=== PATIENT | male | born 1955 | race Asian ===

== ENCOUNTER 2016-06-07 13:00 | Outpatient (RCR) | payer MEDICAID ==
[2016-06-06 15:17] LABS: HEMATOCRIT 20.6 % (42.0-52.0); HEMOGLOBIN 6.5 g/dl (13.5-18.0)
[~2016-06-07] VITALS: Ht 172.7 cm; Wt 65.9 kg
[2016-06-07] VITALS (9 sets, daily range): BP systolic 91–110; BP diastolic 36–64; PULSE 68–73; TEMP 97.6–98.7
[~2016-06-07 13:00] MED LIST: DILAUDID 4MG TAB4 MG PO; HYDROXYURE500 MG/CAP PO; OXY IR5 MG PO; OXYCONTIN 10MG10 MG PO; OXYCONTIN15 MG PO; PHENERGAN1.25 MG/ML PO; ZYLOPRIM 300MG300 MG PO
== END 2016-09-04 | disposition still patient (30) ==
LOC: EUO
PROVIDERS: Internal Medicine Medical Oncology
DX: D46.A Refractory cytopenia with multilineage dysplasia (principal)
CPT/HCPCS: J7050; P9040

== ENCOUNTER 2016-10-29 12:24 | Emergency (ER) | payer MEDICAID ==
[~2016-10-29] VITALS: Ht 172.7 cm; Wt 54.5 kg
[2016-10-29 12:30] VITALS: TEMP 98
[2016-10-29 13:50] LABS: BASO % 0.2 % (0.0-2.0); EOS % 0.2 % (0-4.0); GRAN # 2.1 (1.4-6.5); GRAN % 48.3 % (42.2-75.2); LYMPH # 1.1 (1.2-3.4); LYMPH % 25.8 % (20.0-51.0); MEAN CELL VOLUME 94 fl (80.0-100.0); MEAN CORPUSCULAR HGB CONC 33 g/dl (33.0-37.0); MONO # 0.6 (0.1-0.6); MONO % 13.2 % (1.7-9.3); RED BLOOD COUNT 2.59 M/mm3 (4.20-5.60); REDCELL DISTRIBUTION WIDTH-CV 20.5 % (11.5-14.5); WHITE BLOOD COUNT 4.3 K/mm3 (4.8-10.8)
[2016-10-29 13:52] LABS: HEMATOCRIT 24.3 % (42.0-52.0); MEAN CORPUSCULAR HEMOGLOBIN 31 pg (27.0-31.0)
[2016-10-29 13:53] LABS: INR 1.1 (0.8-3.0); PLATELET COUNT 16 K/mm3 (130-400); PROTHROMBIN TIME 12.7 SECONDS (9.7-12.8)
[2016-10-29 13:58] LABS: ADJUSTED CALCIUM 9.3 mg/dL (8.4-10.2); BILIRUBIN,TOTAL 1.6 mg/dL (0.0-1.0); CALCIUM 8.5 mg/dL (8.4-10.2); CREATININE, serum 1.07 mg/dL (0.66-1.25); POTASSIUM 3.7 mmol/L (3.4-5.0); TOTAL PROTEIN 5.4 gm/dL (6.4-8.2)
[2016-10-29 14:09] LABS: ADD PATHOLOGY DIFF REVIEW NO
[2016-10-29 14:10] LABS: BAND 4 % (0-10); BASOPHIL 0 % (0-2); EOSINOPHIL 2 % (0-4); NEUTROPHILS 52 % (42.0-75.2); POIKILOCYTOSIS 1+; POLYCHROMASIA 1+; TOTAL CELLS COUNTED 100
[2016-10-29] MEDS ORDERED: DILAUDID 2MG TAB2 MG PO (16:19)
[2016-10-29 16:38] VITALS: BP 155/99; PULSE 72
== END 2016-10-29 16:51 | disposition home or self-care (01) ==
LOC: COL.ER 12:24
PROVIDERS: Emergency Medicine
DX: R18.8 Other ascites (principal); K72.90 Hepatic failure, unspecified without coma; B19.20 Unspecified viral hepatitis C without hepatic coma; Z85.6 Personal history of leukemia; Z94.81 Bone marrow transplant status
CPT/HCPCS: J1170

== ENCOUNTER → 2016-10-31 | Outpatient (CLI) | payer MEDICAID ==
[~2016-10-31] MED LIST changes: +ALDACTONE50 MG PO; +BARACLUDE0.5 MG PO; +CIPRO 250MG TA250 MG PO; +DAPSONE 100MG100 MG PO; +DILAUDID 2MG TAB2 MG PO; +K-DUR20 MEQ PO; +LASIX 40MG TABL40 MG PO; +PREDNISONE 5MG5 MG PO; +PROAMATINE 5MG T5 MG PO; +PROTONIX 40MG T40 MG PO; +VALTREX1 GM PO; +ZEBETA 5MG5 MG PO
[2016-10-31 15:33] VITALS: BP 167/104; PULSE 63
== END ==
LOC: COL.RAD 10:00
DX: Z01.89 Encounter for other specified special examinations (principal)

== ENCOUNTER 2016-11-06 13:00 | Outpatient (RCR) | payer MEDICAID ==
[2016-10-23 12:47] LABS: ADD PATHOLOGY DIFF REVIEW NO
[2016-10-23 13:00] LABS: ADJUSTED CALCIUM 9.1 mg/dL (8.4-10.2); ALANINE AMINOTRANSFERASE 31 U/L (21-72); ALBUMIN 3.3 gm/dL (3.5-5.0); ALKALINE PHOSPHATASE 124 U/L (50-136); ANION GAP 11 mmol/L (7-16); BILIRUBIN,TOTAL 1.4 mg/dL (0.0-1.0); BLOOD UREA NITROGEN 31 mg/dL (9-20); CALCIUM 8.5 mg/dL (8.4-10.2); CARBON DIOXIDE 20 mmol/L (22-30); CHLORIDE 97 mmol/L (98-107); CREATININE, serum 1.59 mg/dL (0.66-1.25); GLUCOSE 111 mg/dL (74-106); POTASSIUM 3.9 mmol/L (3.4-5.0); SODIUM 128 mmol/L (137-145); TOTAL PROTEIN 5.6 gm/dL (6.4-8.2)
[2016-10-23 13:01] LABS: CREATINE KINASE < 20 U/L (55-170)
[2016-10-23 13:08] LABS: BAND 3 % (0-10); NEUTROPHILS 40 % (42.0-75.2); TOTAL CELLS COUNTED 100
[2016-10-23 13:09] LABS: LACTATE DEHYDROGENASE 937 U/L (313-618)
[2016-10-23 13:11] LABS: ANISOCYTOSIS 2+; HYPOCHROMIA 1+; MICROCYTOSIS 1+; POLYCHROMASIA 2+; SCHISTOCYTES 1+
[2016-10-23 13:17] LABS: MEAN CELL VOLUME 90 fl (80.0-100.0); MEAN CORPUSCULAR HGB CONC 34 g/dl (33.0-37.0); MEAN PLATELET VOLUME 11.8 fl (7.4-10.4); RED BLOOD COUNT 2.79 M/mm3 (4.20-5.60); REDCELL DISTRIBUTION WIDTH-CV 18.5 % (11.5-14.5); WHITE BLOOD COUNT 4.4 K/mm3 (4.8-10.8)
[2016-10-23 13:20] LABS: HEMATOCRIT 25.2 % (42.0-52.0); HEMOGLOBIN 8.5 g/dl (13.5-18.0); MEAN CORPUSCULAR HEMOGLOBIN 30 pg (27.0-31.0)
[2016-10-23 13:21] LABS: PLATELET COUNT 17 K/mm3 (130-400)
[2016-10-23 14:00] VITALS: BP 135/81; PULSE 62; TEMP 98.1
[2016-10-25 14:31] VITALS: BP 145/94; PULSE 57; TEMP 98.2
[2016-10-26 16:42] VITALS: BP 154/95; PULSE 56; TEMP 97.1
[2016-10-27 13:01] VITALS: BP 148/86; PULSE 58; TEMP 98.6
[2016-10-30 07:11] VITALS: BP 147/92; PULSE 66; TEMP 97.3
[2016-10-30 09:34] LABS: MEAN CELL VOLUME 93 fl (80.0-100.0); MEAN CORPUSCULAR HGB CONC 33 g/dl (33.0-37.0); MEAN PLATELET VOLUME 11.7 fl (7.4-10.4); RED BLOOD COUNT 2.47 M/mm3 (4.20-5.60); REDCELL DISTRIBUTION WIDTH-CV 20.9 % (11.5-14.5); WHITE BLOOD COUNT 3.8 K/mm3 (4.8-10.8)
[2016-10-30 09:40] LABS: HEMOGLOBIN 7.6 g/dl (13.5-18.0); MEAN CORPUSCULAR HEMOGLOBIN 31 pg (27.0-31.0)
[2016-10-30 09:42] LABS: PLATELET COUNT 14 K/mm3 (130-400)
[2016-10-30 09:43] LABS: ADD PATHOLOGY DIFF REVIEW NO
[2016-10-30 10:02] LABS: BAND 11 % (0-10); NEUTROPHILS 52 % (42.0-75.2); TOTAL CELLS COUNTED 100
[2016-10-30 10:03] LABS: ANISOCYTOSIS 2+; MICROCYTOSIS 1+
[2016-10-30 10:04] LABS: HYPOCHROMIA 1+
[2016-10-31 11:40] VITALS: BP 150/94; PULSE 76
[2016-10-31 14:24] VITALS: BP 145/90; PULSE 70; TEMP 98.1
[2016-10-31 14:40] LABS: ADJUSTED CALCIUM 9.3 mg/dL (8.4-10.2); BILIRUBIN,TOTAL 1.8 mg/dL (0.0-1.0); CALCIUM 8.5 mg/dL (8.4-10.2); CREATININE, serum 0.93 mg/dL (0.66-1.25); POTASSIUM 3.6 mmol/L (3.4-5.0); TOTAL PROTEIN 5.4 gm/dL (6.4-8.2)
[2016-10-31 14:45] VITALS: BP 151/95; PULSE 71; TEMP 97.9
[2016-10-31 15:00] VITALS: BP 163/94; PULSE 65; TEMP 98.1
[2016-10-31 16:30] VITALS: BP 139/89; PULSE 72
[2016-10-31 16:45] VITALS: BP 148/89; PULSE 65; TEMP 97.9
[2016-11-03 14:09] LABS: HEMATOCRIT 23.5 % (42.0-52.0); HEMOGLOBIN 7.5 g/dl (13.5-18.0)
[2016-11-03 15:08] VITALS: BP 114/71; PULSE 73; TEMP 97.1
[2016-11-03 15:30] VITALS: BP 133/83; PULSE 76; TEMP 98.3
[2016-11-03 15:45] VITALS: BP 142/89; PULSE 69; TEMP 97.8
[2016-11-03 16:15] VITALS: BP 138/80; PULSE 67; TEMP 97.3
[2016-11-03 17:07] VITALS: BP 144/92; PULSE 71; TEMP 97.4
[~2016-11-06] VITALS: Ht 172.7 cm; Wt 54.0 kg
[~2016-11-06 13:00] MED LIST changes: -ALDACTONE50 MG PO; -BARACLUDE0.5 MG PO; -CIPRO 250MG TA250 MG PO; -DAPSONE 100MG100 MG PO; -K-DUR20 MEQ PO; -LASIX 40MG TABL40 MG PO; -PREDNISONE 5MG5 MG PO; -PROAMATINE 5MG T5 MG PO; -PROTONIX 40MG T40 MG PO; -VALTREX1 GM PO; -ZEBETA 5MG5 MG PO
[2016-11-07 10:41] LABS: ADD PATHOLOGY DIFF REVIEW NO
[2016-11-07 10:45] VITALS: BP 123/82; PULSE 81; TEMP 97.6
[2016-11-07 10:57] LABS: MEAN CELL VOLUME 95 fl (80.0-100.0); MEAN CORPUSCULAR HGB CONC 32 g/dl (33.0-37.0); RED BLOOD COUNT 2.63 M/mm3 (4.20-5.60); REDCELL DISTRIBUTION WIDTH-CV 21.5 % (11.5-14.5)
[2016-11-07 11:00] LABS: ADJUSTED CALCIUM 9.1 mg/dL (8.4-10.2); ALBUMIN 2.9 gm/dL (3.5-5.0); BILIRUBIN,TOTAL 1.7 mg/dL (0.0-1.0); CALCIUM 8.2 mg/dL (8.4-10.2); CREATININE, serum 0.84 mg/dL (0.66-1.25); POTASSIUM 3.9 mmol/L (3.4-5.0); TOTAL PROTEIN 5.3 gm/dL (6.4-8.2)
[2016-11-07 11:13] LABS: HEMOGLOBIN 8.1 g/dl (13.5-18.0); MEAN CORPUSCULAR HEMOGLOBIN 31 pg (27.0-31.0); WHITE BLOOD COUNT 1.9 K/mm3 (4.8-10.8)
[2016-11-07 11:14] LABS: PLATELET COUNT 13 K/mm3 (130-400)
[2016-11-07 14:04] LABS: BAND 5 % (0-10); EOSINOPHIL 1 % (0-4); HYPOCHROMIA 3+; NEUTROPHILS 36 % (42.0-75.2); TOTAL CELLS COUNTED 100
[2016-11-07 14:05] LABS: ANISOCYTOSIS 3+; POLYCHROMASIA 2+
[2016-11-16 12:25] VITALS: BP 125/85; PULSE 83; TEMP 98.7
[2016-11-16 13:40] VITALS: BP 125/85; BP 139/95; PULSE 82; PULSE 83; TEMP 98.1
[2016-11-16 13:55] VITALS: BP 114/72; PULSE 84; TEMP 98.5
[2016-11-16 14:25] VITALS: BP 137/87; PULSE 80; TEMP 98.6
[2016-11-16 15:10] VITALS: BP 142/90; PULSE 79; TEMP 98.2
[2016-11-16] MEDS ORDERED: ZEBETA 5MG5 MG PO (18:09)
[2016-11-16] MEDS ORDERED: CIPRO 250MG TA250 MG PO (18:09)
[2016-11-16] MEDS ORDERED: DAPSONE 100MG100 MG PO (18:10)
[2016-11-16] MEDS ORDERED: BARACLUDE0.5 MG PO (18:10)
[2016-11-16] MEDS ORDERED: LASIX 40MG TABL40 MG PO (18:11)
[2016-11-16] MEDS ORDERED: PROAMATINE 5MG T5 MG PO (18:11)
[2016-11-16] MEDS ORDERED: PROTONIX 40MG T40 MG PO (18:12)
[2016-11-16] MEDS ORDERED: ALDACTONE50 MG PO (18:13)
[2016-11-16] MEDS ORDERED: PREDNISONE 5MG5 MG PO (18:13)
[2016-11-16] MEDS ORDERED: VALTREX1 GM PO (18:14)
[2016-11-24 13:28] VITALS: BP 105/69; PULSE 80; TEMP 98.2
[2016-11-25 11:52] VITALS: BP 88/62; PULSE 81; TEMP 97.6
[2016-11-25 13:11] VITALS: BP 87/60; PULSE 68; TEMP 98
[2016-11-25 13:28] VITALS: BP 90/60; PULSE 68; TEMP 97.7
[2016-11-25 14:00] VITALS: BP 99/78; PULSE 63; TEMP 97.8
[2016-11-25 15:00] VITALS: BP 116/90; PULSE 65; TEMP 98
== END 2016-11-26 16:00 | disposition home or self-care (01) ==
LOC: SURG 13:00 → EUO 13:00 → SURG 11-25 11:40 → EUO 11-25 17:00 → SURG 11-25 17:00 → EUO 11-26 16:00
PROVIDERS: Internal Medicine Medical Oncology
DX: D46.A Refractory cytopenia with multilineage dysplasia (principal)
CPT/HCPCS: OP; J0348; J0878; J1644; J7050; P9037; P9040

== ENCOUNTER → 2016-11-13 | Outpatient (REF) ==
[~2016-11-13] MED LIST changes: +ALDACTONE50 MG PO; +BARACLUDE0.5 MG PO; +CIPRO 250MG TA250 MG PO; +DAPSONE 100MG100 MG PO; +K-DUR20 MEQ PO; +LASIX 40MG TABL40 MG PO; +PREDNISONE 5MG5 MG PO; +PROAMATINE 5MG T5 MG PO; +PROTONIX 40MG T40 MG PO; +VALTREX1 GM PO; +ZEBETA 5MG5 MG PO
== END ==
LOC: ZAIV 06:10
DX: Z01.89 Encounter for other specified special examinations (principal)

== ENCOUNTER 2016-11-16 12:39 | Outpatient (CLI) | payer MEDICAID ==
[~2016-11-16 12:39] MED LIST changes: -ALDACTONE50 MG PO; -BARACLUDE0.5 MG PO; -CIPRO 250MG TA250 MG PO; -DAPSONE 100MG100 MG PO; -K-DUR20 MEQ PO; -LASIX 40MG TABL40 MG PO; -PREDNISONE 5MG5 MG PO; -PROAMATINE 5MG T5 MG PO; -PROTONIX 40MG T40 MG PO; -VALTREX1 GM PO; -ZEBETA 5MG5 MG PO
[2016-11-16] MEDS ORDERED: ZEBETA 5MG5 MG PO (18:09)
[2016-11-16] MEDS ORDERED: CIPRO 250MG TA250 MG PO (18:09)
[2016-11-16] MEDS ORDERED: BARACLUDE0.5 MG PO (18:10)
[2016-11-16] MEDS ORDERED: DAPSONE 100MG100 MG PO (18:10)
[2016-11-16] MEDS ORDERED: PROAMATINE 5MG T5 MG PO (18:11)
[2016-11-16] MEDS ORDERED: LASIX 40MG TABL40 MG PO (18:11)
[2016-11-16] MEDS ORDERED: PROTONIX 40MG T40 MG PO (18:12)
[2016-11-16] MEDS ORDERED: PREDNISONE 5MG5 MG PO (18:13)
[2016-11-16] MEDS ORDERED: ALDACTONE50 MG PO (18:13)
[2016-11-16] MEDS ORDERED: VALTREX1 GM PO (18:14)
== END 2016-11-16 14:16 | disposition home or self-care (01) ==
LOC: COL.RAD 12:39
DX: D46.A Refractory cytopenia with multilineage dysplasia (principal); R18.8 Other ascites; Z95.9 Presence of cardiac and vascular implant and graft, unspecified

== ENCOUNTER → 2016-11-16 | Outpatient (CLI) | payer MEDICAID ==
[~2016-11-16] VITALS: Ht 172.7 cm; Wt 54.5 kg
[2016-11-16 13:54] VITALS: BP 125/85; PULSE 81
[2016-11-16 17:03] VITALS: BP 107/73; PULSE 77
== END ==
LOC: COL.RAD 11-15 11:15 → COL.VAS 11-15 13:45 → EUO 08:00 → COL.VAS 10:00 → COL.RAD 10:00 → EUO 13:00
DX: D46.A Refractory cytopenia with multilineage dysplasia (principal)
CPT/HCPCS: 19804

== ENCOUNTER 2016-11-28 12:54 | Emergency (ER) | payer MEDICAID ==
[~2016-11-28] VITALS: Ht 172.7 cm; Wt 54.5 kg
[~2016-11-28 12:54] MED LIST changes: +ALDACTONE50 MG PO; +BARACLUDE0.5 MG PO; +CIPRO 250MG TA250 MG PO; +DAPSONE 100MG100 MG PO; +LASIX 40MG TABL40 MG PO; +PREDNISONE 5MG5 MG PO; +PROAMATINE 5MG T5 MG PO; +PROTONIX 40MG T40 MG PO; +VALTREX1 GM PO; +ZEBETA 5MG5 MG PO
[2016-11-28 12:55] VITALS: TEMP 98.1
[2016-11-28] MEDS ORDERED: K-DUR20 MEQ PO (13:06)
[2016-11-28] MEDS ORDERED: DILAUDID 4MG TAB4 MG PO (13:07)
[2016-11-28 13:40] LABS: MEAN CELL VOLUME 91 fl (80.0-100.0); MEAN CORPUSCULAR HGB CONC 34 g/dl (33.0-37.0); MEAN PLATELET VOLUME 10.2 fl (7.4-10.4); RED BLOOD COUNT 2.42 M/mm3 (4.20-5.60); REDCELL DISTRIBUTION WIDTH-CV 23.3 % (11.5-14.5); WHITE BLOOD COUNT 2.2 K/mm3 (4.8-10.8)
[2016-11-28 13:41] LABS: HEMATOCRIT 22.1 % (42.0-52.0); HEMOGLOBIN 7.5 g/dl (13.5-18.0); MEAN CORPUSCULAR HEMOGLOBIN 31 pg (27.0-31.0)
[2016-11-28 13:42] LABS: INR 1.1 (0.8-3.0); PROTHROMBIN TIME 12.4 SECONDS (9.7-12.8)
[2016-11-28 13:43] LABS: ADD PATHOLOGY DIFF REVIEW NO; PLATELET COUNT 12 K/mm3 (130-400)
[2016-11-28 13:45] LABS: PARTIAL THROMBOPLASTIN TIME 35.9 SECONDS (26.0-37.0)
[2016-11-28 13:47] LABS: ADJUSTED CALCIUM 8.8 mg/dL (8.4-10.2); ALANINE AMINOTRANSFERASE 78 U/L (21-72); ALBUMIN 2.4 gm/dL (3.5-5.0); ALKALINE PHOSPHATASE 376 U/L (50-136); ANION GAP 5 mmol/L (7-16); BILIRUBIN,TOTAL 1.2 mg/dL (0.0-1.0); BLOOD UREA NITROGEN 14 mg/dL (9-20); C-REACTIVE PROTEIN 2.3 mg/dL (0.0-0.9); CALCIUM 7.5 mg/dL (8.4-10.2); CARBON DIOXIDE 26 mmol/L (22-30); CREATININE, serum 0.76 mg/dL (0.66-1.25); GLUCOSE 98 mg/dL (74-106); LIPASE 82 U/L (23-300); POTASSIUM 4.5 mmol/L (3.4-5.0); SODIUM 121 mmol/L (137-145); TOTAL PROTEIN 4.9 gm/dL (6.4-8.2)
[2016-11-28 13:56] LABS: B-TYPE NATRIURETIC PEPTIDE 989 pg/mL (0-125)
[2016-11-28 14:05] LABS: CHLORIDE 89 mmol/L (98-107)
[2016-11-28 14:06] LABS: CREATINE KINASE < 20 U/L (55-170); TROPONIN-I < 0.012 ng/mL (0.000-0.034)
[2016-11-28 14:19] LABS: BAND 7 % (0-10); NEUTROPHILS 48 % (42.0-75.2); TOTAL CELLS COUNTED 100
[2016-11-28 14:20] LABS: ANISOCYTOSIS 3+; HYPOCHROMIA 2+; PLATELET ESTIMATE DECREASED (NORMAL); POLYCHROMASIA 2+
[2016-11-28 14:21] LABS: OVALOCYTES 2+; TEAR DROP CELLS 1+
[2016-11-28 16:45] VITALS: BP 125/71; PULSE 73
== END 2016-11-28 17:10 | disposition short-term general hospital (02) ==
LOC: COL.ER 12:54
PROVIDERS: Emergency Medicine
DX: D61.818 Other pancytopenia (principal); Z94.81 Bone marrow transplant status; Z85.6 Personal history of leukemia; R53.1 Weakness
CPT/HCPCS: J0692; J1170; J7030

== ENCOUNTER 2017-01-01 12:00 | Outpatient (RCR) | payer MEDICAID ==
[2016-12-11 13:13] VITALS: BP 122/78; PULSE 77; TEMP 97.7
[2016-12-11 13:29] LABS: ADD PATHOLOGY DIFF REVIEW NO
[2016-12-11 13:32] LABS: MEAN CELL VOLUME 95 fl (80.0-100.0); MEAN CORPUSCULAR HGB CONC 33 g/dl (33.0-37.0); RED BLOOD COUNT 2.36 M/mm3 (4.20-5.60); REDCELL DISTRIBUTION WIDTH-CV 23.9 % (11.5-14.5); WHITE BLOOD COUNT 2.3 K/mm3 (4.8-10.8)
[2016-12-11 13:39] LABS: HEMATOCRIT 22.5 % (42.0-52.0); HEMOGLOBIN 7.5 g/dl (13.5-18.0); MEAN CORPUSCULAR HEMOGLOBIN 32 pg (27.0-31.0)
[2016-12-11 13:40] LABS: PLATELET COUNT 13 K/mm3 (130-400)
[2016-12-11 13:55] LABS: ADJUSTED CALCIUM 8.7 mg/dL (8.4-10.2); ALBUMIN 2.7 gm/dL (3.5-5.0); BILIRUBIN,TOTAL 1.2 mg/dL (0.0-1.0); CALCIUM 7.7 mg/dL (8.4-10.2); CREATININE, serum 0.76 mg/dL (0.66-1.25); POTASSIUM 4.3 mmol/L (3.4-5.0); TOTAL PROTEIN 5.2 gm/dL (6.4-8.2)
[2016-12-11 13:59] LABS: BAND 4 % (0-10); METAMYELOCYTE 8 % (0-0); NEUTROPHILS 68 % (42.0-75.2); TOTAL CELLS COUNTED 100
[2016-12-11 14:01] LABS: ANISOCYTOSIS 2+; MICROCYTOSIS 1+; POLYCHROMASIA 1+
[2016-12-11 14:02] LABS: HYPOCHROMIA 1+
[2016-12-26 16:46] LABS: ADD PATHOLOGY DIFF REVIEW NO
[2016-12-26 16:50] LABS: MEAN CELL VOLUME 98 fl (80.0-100.0); MEAN CORPUSCULAR HGB CONC 33 g/dl (33.0-37.0); MEAN PLATELET VOLUME 10.8 fl (7.4-10.4); RED BLOOD COUNT 2.32 M/mm3 (4.20-5.60); REDCELL DISTRIBUTION WIDTH-CV 21.8 % (11.5-14.5)
[2016-12-26 16:52] LABS: HEMATOCRIT 22.8 % (42.0-52.0); HEMOGLOBIN 7.5 g/dl (13.5-18.0); MEAN CORPUSCULAR HEMOGLOBIN 32 pg (27.0-31.0); WHITE BLOOD COUNT 1.7 K/mm3 (4.8-10.8)
[2016-12-26 16:53] LABS: PLATELET COUNT 12 K/mm3 (130-400)
[2016-12-26 17:01] LABS: ALBUMIN 2.8 gm/dL (3.5-5.0); BILIRUBIN,TOTAL 1.4 mg/dL (0.0-1.0); CREATININE, serum 0.67 mg/dL (0.66-1.25); POTASSIUM 4.9 mmol/L (3.4-5.0); TOTAL PROTEIN 5.3 gm/dL (6.4-8.2)
[2016-12-26 17:09] LABS: NEUTROPHILS 94 % (42.0-75.2); POLYCHROMASIA 1+; TOTAL CELLS COUNTED 100
[2016-12-26 17:10] LABS: ANISOCYTOSIS 2+; HYPOCHROMIA 1+
[2016-12-26 17:31] VITALS: BP 99/55; PULSE 72; TEMP 97.8
[2016-12-29] VITALS (10 sets, daily range): BP systolic 88–113; BP diastolic 60–70; PULSE 75–87; TEMP 97–100
[~2017-01-01] VITALS: Ht 172.7 cm; Wt 56.3 kg
[~2017-01-01 12:00] MED LIST changes: +K-DUR20 MEQ PO
[2017-01-01 12:11] LABS: ADD PATHOLOGY DIFF REVIEW NO
[2017-01-01 12:15] LABS: MEAN CELL VOLUME 94 fl (80.0-100.0); MEAN CORPUSCULAR HGB CONC 35 g/dl (33.0-37.0); MEAN PLATELET VOLUME 10.5 fl (7.4-10.4); RED BLOOD COUNT 2.49 M/mm3 (4.20-5.60); REDCELL DISTRIBUTION WIDTH-CV 20.3 % (11.5-14.5)
[2017-01-01 12:17] LABS: HEMATOCRIT 23.5 % (42.0-52.0); HEMOGLOBIN 8.1 g/dl (13.5-18.0); MEAN CORPUSCULAR HEMOGLOBIN 33 pg (27.0-31.0); WHITE BLOOD COUNT 0.6 K/mm3 (4.8-10.8)
[2017-01-01 12:18] LABS: PLATELET COUNT 15 K/mm3 (130-400)
[2017-01-01 12:24] LABS: ADJUSTED CALCIUM 8.7 mg/dL (8.4-10.2); ALBUMIN 2.9 gm/dL (3.5-5.0); BILIRUBIN,TOTAL 1.7 mg/dL (0.0-1.0); CALCIUM 7.8 mg/dL (8.4-10.2); CREATININE, serum 0.82 mg/dL (0.66-1.25); POTASSIUM 4.6 mmol/L (3.4-5.0); TOTAL PROTEIN 5.5 gm/dL (6.4-8.2)
[2017-01-01 12:26] VITALS: BP 111/63; PULSE 73; TEMP 98.1
[2017-01-01 12:52] LABS: BAND 8 % (0-10)
[2017-01-01 12:53] LABS: OVALOCYTES 1+; PLATELET ESTIMATE DECREASED (NORMAL); POLYCHROMASIA 1+; SCHISTOCYTES 1+
[2017-01-01 12:54] LABS: METAMYELOCYTE 2 % (0-0); MYELOCYTE 2 % (0-0); TOTAL CELLS COUNTED 100
[2017-01-01 13:00] VITALS: BP 117/67; PULSE 88; TEMP 98.3
[2017-01-01 13:13] LABS: NEUTROPHILS 64 % (42.0-75.2)
== END 2017-03-11 | disposition still patient (30) ==
LOC: EUO
PROVIDERS: Internal Medicine Medical Oncology
DX: D46.9 Myelodysplastic syndrome, unspecified (principal)
CPT/HCPCS: J1447; J7050; P9037; P9040